=== PATIENT | male | born 1970 | race Caucasian/White ===

== ENCOUNTER 2019-06-06 20:25 | Emergency (ER) | payer OTHER ==
[~2019-06-06] VITALS: Ht 177.8 cm; Wt 70.8 kg
[2019-06-06 20:25] VITALS: BP_SYST 156
[2019-06-06 20:35] VITALS: BP_SYST 156
== END 2019-06-06 20:35 ==
LOC: SED 20:25
DX: S01.312A Laceration without foreign body of left ear, initial encounter (principal); Y04.0XXA Assault by unarmed brawl or fight, initial encounter; Y93.89 Activity, other specified; Y92.89 Other specified places as the place of occurrence of the external cause; Y99.8 Other external cause status
CPT/HCPCS: 99283